=== PATIENT | female | born 1950 | race Caucasian/White ===

== ENCOUNTER → 2020-09-09 01:48 | Outpatient (CLI) | payer MEDICARE, SELFPAY ==
[2020-09-09 19:23] LABS: SARS-CoV-2 RNA PCR Negative
== END ==
PROVIDERS: Visit Provider Internal Medicine Gastroenterology
DX: Z01.812 Encounter for preprocedural laboratory examination (principal); Z20.822 Contact with and (suspected) exposure to COVID-19
CPT/HCPCS: C9803; U0003; U0005

== ENCOUNTER 2020-09-12 01:59 | Day surgery (SDC) | payer MEDICARE, SELFPAY ==
[2020-09-01 15:38] VITALS: BMI 43.1
[2020-09-12 07:34] VITALS: RESP 20; TEMP 36.6; O2SAT 96; BMI 43.3
[2020-09-12] MEDS: LACTATED RINGERS 1,000 ML 150 ML IV CONT (07:39)
--- NOTE | 2020-09-12 07:45 | PM.HPGS ---
History of Present Illness History of Present Illness Consent: Risks, benefits, and alternatives have been discussed and questions answered. Patient agrees to proceed with procedure. Chief complaint: neoplasm screening Narrative: Poppy Kaminski is a 69 year old female referred for colon cancer screen Review of Systems Review of Systems: All systems reviewed & are unremarkable except as noted in HPI and below PMFSH Social History Social History Smoking packs per day: 0.75 Smoking cigarettes per day: 15.0 Years smoked: 35 Smoking pack-years: 26.25 Smoking status: Former smoker Tobacco type: cigarettes Alcohol intake: current Drinks per week: 10 Alcohol use details: 2 BOTTLES OF WINE A WEEK Substance use: never Substance use type: does not use Living arrangements: with family Spiritual care concerns: No Meds Home Medications and Allergies Home Medications Medication Instructions Recorded Confirmed Type bupropion HCl 150 mg PO DAILY 09/01/20 09/01/20 History losartan 50 mg PO DAILY 09/01/20 09/01/20 History montelukast 10 mg PO DAILY 09/01/20 09/01/20 History rosuvastatin 5 mg PO DAILY 09/01/20 09/01/20 History thyroid (pork) [[place] Thyroid] 30 mg PO DAILY 09/01/20 09/01/20 History Allergies Allergy/AdvReac Type Severity Reaction Status Date / Time No Known Allergies Allergy Verified 09/01/20 15:36 Vital Signs Vital Signs - 24 hr 09/12/20 07:34 Temperature 36.6 C Respiratory Rate 20 Pulse Oximetry 96 Exam Resp: Auscultation: clear to auscultation bilaterally Cardio: Rate: regular rate Rhythm: regular rhythm GI: GI Palp: Yes Soft to palpation and No Tenderness to palpation present (GI) Assessment and Plan Assessment and plan (1) Colon cancer screening: Code(s): Z12.11 - Encounter for screening for malignant neoplasm of colon Status: Acute Assessment and Plan: Colonoscopy with possible biopsy or polypectomy or cautery or injection of substances.
--- NOTE | 2020-09-12 08:06 | WPDANESEPPF ---
Anes - Initial Pre Proc Eval Procedure: Operation Date: 09/12/20 08:30 Proposed Procedures p Screening Colonoscopy - Francisco Javier Thompson MD Date/Time: 09/12/20 08:06 Surgeon: Francisco Javier Thompson MD Pre Op Diagnosis: neoplasm screening Patient Data Age: 69 Gender: F Height: 5 ft 4 in Weight: 114.5 kg Last Vital Signs Temp 36.6 C 09/12/20 07:34 Resp 20 09/12/20 07:34 Pulse Ox 96 09/12/20 07:34 Allergies Allergy/AdvReac Type Severity Reaction Status Date / Time No Known Allergies Allergy Verified 09/01/20 15:36 Home Medications Medication Instructions Recorded Confirmed Type bupropion HCl 150 mg PO DAILY 09/01/20 09/01/20 History losartan 50 mg PO DAILY 09/01/20 09/01/20 History montelukast 10 mg PO DAILY 09/01/20 09/01/20 History rosuvastatin 5 mg PO DAILY 09/01/20 09/01/20 History thyroid (pork) [[place] Thyroid] 30 mg PO DAILY 09/01/20 09/01/20 History Patient hx anesthesia problems: none Family hx anesthesia problems: none PMFSH Past Medical History Medical History Anxiety Arthritis Asthma Hyperlipidemia Hypertension Social History Social History Smoking packs per day: 0.75 Smoking cigarettes per day: 15.0 Years smoked: 35 Smoking pack-years: 26.25 Smoking status: Former smoker Tobacco type: cigarettes Alcohol intake: current Drinks per week: 10 Alcohol use details: 2 BOTTLES OF WINE A WEEK Substance use: never Substance use type: does not use Living arrangements: with family Spiritual care concerns: No Anes - Eval Final PreProcedure Day of Procedure 09/12/20 08:06 Patient weight: morbidly obese Heart: regular rate and rhythm Lungs: clear to auscultation Airway: Mallampati scale class II Neurological: alert and oriented Last oral intake: >/= 8 hours ASA classification: III Emergent: no Anesthetic plan: proceed Anesthesia type and monitoring: general GIVS and standard monitoring Informed Consent: The patient's anesthetic plan and its attendant risks and benefits were discussed with the patient/family/POA. Questions were solicited and answers provided to the satisfaction of the patient/family/POA.
[2020-09-12 08:42] VITALS: BP 149/65; PULSE 65; RESP 13; O2SAT 96
[2020-09-12 08:52] VITALS: BP 140/68; PULSE 68; RESP 20; O2SAT 96
[2020-09-12 09:02] VITALS: BP 149/93; PULSE 62; RESP 20; O2SAT 96
== END 2020-09-12 09:18 | disposition home or self-care (01) ==
PROVIDERS: Visit Provider Internal Medicine Gastroenterology
PROC: 0DJD8ZZ Inspection of Lower Intestinal Tract, Via Natural or Artificial Opening Endoscopic (ICD-10-PCS; CPT 45378; principal; 2020-09-12 08:30)
DX: Z12.11 Encounter for screening for malignant neoplasm of colon (principal); I10 Essential (primary) hypertension; E78.5 Hyperlipidemia, unspecified; F41.8 Other specified anxiety disorders; J45.909 Unspecified asthma, uncomplicated; Z87.891 Personal history of nicotine dependence; E66.01 Morbid (severe) obesity due to excess calories; Z68.41 Body mass index [BMI] 40.0-44.9, adult
CPT/HCPCS: G0121; C9803; J2704; J7120; U0003; U0005

== ENCOUNTER → 2021-01-01 15:32 | Outpatient (CLI) | payer MEDICARE, SELFPAY ==
--- NOTE | ~2021-01-01 | MM_ITS ---
EXAMINATION: MM screening rick BI w luz elena HISTORY: Screening mammogram TECHNIQUE: Craniocaudal and mediolateral oblique 3-D tomosynthesis images were obtained and synthetic 2-D images were generated. CAD analysis was submitted and interpreted. COMPARISON: No prior mammogram is available for comparison at this institution. BREAST PARENCHYMAL COMPOSITION: The breasts are heterogeneously dense, which may obscure small masses . FINDINGS: There is no evidence of suspicious mass, calcification, or architectural distortion to sugg est malignancy in either breast. IMPRESSION: 1. No mammographic evidence of malignancy. 2. Recommend routine screening mammography in one year. BI-RADS Category 1: Negative Reviewed, dictated and finalized at location A.
== END ==
DX: Z12.31 Encounter for screening mammogram for malignant neoplasm of breast (principal)
CPT/HCPCS: 77063; 77067

== ENCOUNTER 2022-03-01 08:13 | Emergency (ER) | payer MEDICARE, SELFPAY ==
--- NOTE | 2022-03-01 08:19 | ED.URI ---
HPI - URI/Sore Throat General Chief Complaint: Upper Respiratory Infection Stated Complaint: cough,fever, runny nose, watery eyes Time Seen by Provider: 03/01/22 08:25 Source: patient, RN notes reviewed and old records reviewed Mode of arrival: ambulatory Limitations: no limitations History of Present Illness HPI Narrative: 71 year old female who presents to [facility] care with 2 day history of cough, fevers up to 99.3F with headache.sore throat and body aches. She reports that she has had Covid immunizations and also had flu shot on February 07.Patient reports that she had had positive exposure to flu from grandsons recently. She has been taking Mucinex, Benadryl,nasal spray and cough syrup for her symptoms. MD elicited complaint: fever, cough, rhinorrhea, nasal congestion and other (watery eyes) Onset (ago): day(s) (2) Pain scale (0-10): 10 Treatments prior to arrival: acetaminophen, ibuprofen and other (Benadryl,Mucinex, and cough syrup, and nasal spray) Related Data Home Medications Medication Instructions Recorded Confirmed bupropion HCl 150 mg 24 hr tablet, 150 mg PO DAILY 09/01/20 09/01/20 extended release losartan 50 mg tablet 50 mg PO DAILY 09/01/20 09/01/20 montelukast 10 mg tablet 10 mg PO DAILY 09/01/20 09/01/20 rosuvastatin 5 mg tablet 5 mg PO DAILY 09/01/20 09/01/20 thyroid (pork) 30 mg tablet 30 mg PO DAILY 09/01/20 09/01/20 ([place] Thyroid) Allergies Allergy/AdvReac Type Severity Reaction Status Date / Time No Known Allergies Allergy Verified 09/01/20 15:36 Review of Systems Review of Systems: CONSTITUTIONAL: reports malaise, chills, sweats, or fever. EYES: Denies visual changes, redness, or discharge. ENT: Reports rhinorrhea, congestion, sinus pain, no otalgia positive for sore throat. CARDIOVASCULAR: Denies chest pain, palpitations, or edema. RESPIRATORY: Reports cough.? Denies dyspnea. GASTROINTESTINAL: Denies abdominal pain, nausea, vomiting, diarrhea SKIN: Denies rash or itching. MUSCULOSKELETAL: reports myalgia. NEUROLOGIC: reports headache. All systems reviewed & are unremarkable except as noted in HPI and below PMFSH Past Medical History Medical History (Updated 03/02/22 @ 06:57 by Socorro Valera NP) Anxiety Arthritis Asthma Hyperlipidemia Hypertension Hypothyroid Surgical History Surgical History (Updated 03/01/22 @ 11:19 by Socorro Valera NP) H/O: hysterectomy History of right knee joint replacement Hx of tonsillectomy Social History Social History (Updated 03/01/22 @ 08:23 by Socorro Valera NP) Smoking packs per day: 0.75 Smoking cigarettes per day: 15.0 Years smoked: 35 Smoking pack-years: 26.25 Smoking status: Former smoker Tobacco type: cigarettes Alcohol intake: current Drinks per week: 10 Alcohol use details: 2 BOTTLES OF WINE A WEEK Substance use: never Substance use type: does not use Gender identity (if verbalized by the patient): Female Spiritual care concerns: No Comments At time of signature, agree with nursing past medical, surgical, social and family history. There is no relevant family history pertinent to the presenting complaint Exam Narrative: GENERAL: Well-appearing, well-nourished, and in no acute distress. HEAD: Normocephalic EYES: PERRLA, conjunctivae clear, eyes watery ENT: Nares clear, turbinates edematous and erythematous, clear discharge. Mucous membranes moist. TM pearly carmen with dull light reflex bilaterally; no tragal tenderness. Oropharynx erythematous without lesions. Tonsils not present and without exudate, no drooling, no hoarseness, no trismus, uvula midline. NECK: Supple. No lymphadenopathy CHEST: Clear to auscultation, breath sounds equal. No wheezing, rhonchi, rales, or stridor. No respiratory distress, speaks in full sentences.cough noted with SAO2 96% on room air HEART: Regular rate and rhythm. No murmur heard. SKIN: Warm, dry, no rash. NEURO: Alert and orie
[2022-03-01 08:24] VITALS: BP 170/71; PULSE 93; RESP 16; TEMP 37.9; O2SAT 96
== END 2022-03-01 08:58 | disposition home or self-care (01) ==
PROVIDERS: Emergency Provider Registered Nurse
DX: R05.9 Cough, unspecified (principal); J10.1 Influenza due to other identified influenza virus with other respiratory manifestations; Z87.891 Personal history of nicotine dependence; M19.90 Unspecified osteoarthritis, unspecified site; I10 Essential (primary) hypertension; E03.9 Hypothyroidism, unspecified; J45.909 Unspecified asthma, uncomplicated; Z96.651 Presence of right artificial knee joint; F41.9 Anxiety disorder, unspecified
CPT/HCPCS: 87081; 87804; 87880; 99213; G0463

== ENCOUNTER 2022-03-06 08:35 | Emergency (ER) | payer MEDICARE, SELFPAY ==
[2022-03-06 08:45] VITALS: BP 135/61; PULSE 67; RESP 16; TEMP 36.3; O2SAT 98
--- NOTE | 2022-03-06 08:45 | ED.URI ---
HPI - URI/Sore Throat General Chief Complaint: Upper Respiratory Infection Stated Complaint: cough, sore throat Time Seen by Provider: 03/06/22 08:45 Source: patient and RN notes reviewed Mode of arrival: ambulatory Limitations: no limitations History of Present Illness HPI Narrative: 71 y/o female presented for c/o cough for one week. Pt was dx with influenza 03/01 (5 days ago) stating she still has a cough and noticed wheezing when laying on her side last night. Also reports right ear pressure and sinus pain. Taking mucinex, zyrtec, montelukast, and prescribed guaifenesin along with Tylenol and Aleve. Endorses feeling sob with exertion. Denies lethargy, cp, palpitations, n/v/d/f/c. MD elicited complaint: cough Related Data Home Medications Medication Instructions Recorded Confirmed bupropion HCl 150 mg 24 hr tablet, 150 mg PO DAILY 09/01/20 09/01/20 extended release losartan 50 mg tablet 50 mg PO DAILY 09/01/20 09/01/20 montelukast 10 mg tablet 10 mg PO DAILY 09/01/20 09/01/20 rosuvastatin 5 mg tablet 5 mg PO DAILY 09/01/20 09/01/20 thyroid (pork) 30 mg tablet 30 mg PO DAILY 09/01/20 09/01/20 ([place] Thyroid) Allergies Allergy/AdvReac Type Severity Reaction Status Date / Time No Known Allergies Allergy Verified 09/01/20 15:36 Review of Systems Review of Systems: CONSTITUTIONAL: denies malaise, chills, sweats, fever EYES: Denies visual changes, redness, or discharge ENT: Reports rhinorrhea, congestion, sinus pain, otalgia CARDIOVASCULAR: Denies chest pain, palpitations, edema RESPIRATORY: per HPI GASTROINTESTINAL: Denies abdominal pain, nausea, vomiting, diarrhea SKIN: Denies rash or itching PMFSH Past Medical History Medical History Anxiety Arthritis Asthma Hyperlipidemia Hypertension Hypothyroid Surgical History Surgical History H/O: hysterectomy History of right knee joint replacement Hx of tonsillectomy Social History Social History Smoking packs per day: 0.75 Smoking cigarettes per day: 15.0 Years smoked: 35 Smoking pack-years: 26.25 Smoking status: Former smoker Tobacco type: cigarettes Alcohol intake: current Drinks per week: 10 Alcohol use details: 2 BOTTLES OF WINE A WEEK Substance use: never Substance use type: does not use Gender identity (if verbalized by the patient): Female Spiritual care concerns: No Exam Narrative: GENERAL: Ill-appearing, nontoxic EYES: PERRLA, conjunctivae clear ENT: Mucous membranes moist. TMs pearly carmen with light reflex bilaterally; no tragal tenderness. Oropharynx erythematous without lesions or exudate, no drooling, no hoarseness, no trismus, uvula midline. CHEST: Clear to auscultation, breath sounds equal. No wheezing, rhonchi, rales, or stridor. No respiratory distress, speaks in full sentences. HEART: Regular rate and rhythm. No murmur heard. SKIN: Warm, dry, no rash. NEURO: Alert and oriented x3. PSYCH: Normal mood and affect Course Course Emergency Course: Patient is aware of diagnosis, understands and agrees to treatment plan. Anticipatory guidance given. Patient agrees to follow-up as directed and is aware of reasons to seek care at the emergency department. Portions of this record may have been created with voice recognition software Level of Care: Express Care Visit Vital Signs Vital signs: reviewed MDM - URI/Sore Throat MDM Narrative Medical decision making narrative: Discussed influenza symptoms at length, pt is aware it is a virus and symptoms can linger for several days. Her PCP is at [facility] and she states she does not feel comfortable driving out there while feeling ill. Patient requesting antibiotic. Patient again is advised to continue current efforts for symptom treatment and add flonase and saline spray, LCTAB. Advis
== END 2022-03-06 09:00 | disposition home or self-care (01) ==
PROVIDERS: Emergency Provider Nurse Practitioner Family
DX: B34.9 Viral infection, unspecified (principal); Z87.891 Personal history of nicotine dependence; M19.90 Unspecified osteoarthritis, unspecified site; E78.5 Hyperlipidemia, unspecified; I10 Essential (primary) hypertension; E03.9 Hypothyroidism, unspecified; Z96.651 Presence of right artificial knee joint; F41.9 Anxiety disorder, unspecified
CPT/HCPCS: 99213; G0463

== ENCOUNTER 2022-12-19 10:27 | Emergency (ER) | payer MEDICARE, SELFPAY ==
[2022-12-19 10:46] VITALS: BP 144/70; PULSE 70; RESP 16; TEMP 37.2; O2SAT 99
--- NOTE | 2022-12-19 10:49 | ED.EXTPRO ---
HPI - Extremity Problem General Chief complaint: Extremity Injury, Lower Stated complaint: swollen right leg Time Seen by Provider: 12/19/22 10:59 Source: patient and RN notes reviewed Mode of arrival: ambulatory Limitations: no limitations History of Present Illness HPI Narrative: 72-year-old female presents concern for redness, swelling, tenderness to the right lower extremity. She noticed the symptoms last night. She denies fever, aches, chills, sweats. Reports the leg feels tight when she walks. She denies shortness of breath, cough, headache MD Complaint: extremity swelling Related Data Home Medications Medication Instructions Recorded Confirmed bupropion HCl 150 mg 24 hr tablet, 150 mg PO DAILY 09/01/20 09/01/20 extended release losartan 50 mg tablet 50 mg PO DAILY 09/01/20 09/01/20 montelukast 10 mg tablet 10 mg PO DAILY 09/01/20 09/01/20 rosuvastatin 5 mg tablet 5 mg PO DAILY 09/01/20 09/01/20 thyroid (pork) 30 mg tablet 30 mg PO DAILY 09/01/20 09/01/20 ([place] Thyroid) Supplements 12/19/22 Allergies Allergy/AdvReac Type Severity Reaction Status Date / Time No Known Allergies Allergy Verified 12/19/22 10:42 Review of Systems Review of Systems: CONSTITUTIONAL: Denies malaise, chills, sweats, or fever. EYES: Denies redness, or discharge. ENT: Denies rhinorrhea, congestion, swollen lips, swollen tongue CARDIOVASCULAR: Denies chest pain, palpitations, or edema. RESPIRATORY: Denies cough or dyspnea. GASTROINTESTINAL: Denies abdominal pain, nausea, vomiting SKIN: Reports redness, swelling, tenderness to the right lower extremity MUSCULOSKELETAL: Denies joint pain or myalgia. NEUROLOGIC: Denies headache. All systems reviewed & are unremarkable except as noted in HPI and below PMFSH Past Medical History Medical History Anxiety Arthritis Asthma Hyperlipidemia Hypertension Hypothyroid Surgical History Surgical History H/O: hysterectomy History of right knee joint replacement Hx of tonsillectomy Social History Social History Smoking packs per day: 0.75 Smoking cigarettes per day: 15.0 Years smoked: 35 Smoking pack-years: 26.25 Smoking status: Former smoker Tobacco type: cigarettes Alcohol intake: current Drinks per week: 10 Alcohol use details: 2 BOTTLES OF WINE A WEEK Substance use: never Substance use type: does not use Living arrangements: with family Gender identity (if verbalized by the patient): Female Spiritual care concerns: No Comments At time of signature, agree with nursing past medical, surgical, social and family history. There is no relevant family history pertinent to the presenting complaint Exam Narrative: GENERAL: Well-appearing, well-nourished, and in no acute distress. HEAD: Normocephalic, atraumatic. EYES: PERRLA, conjunctivae clear, and EOMI. ENT: Mucous membranes moist. Oropharynx without edema, erythema or lesions. NECK: Supple. No lymphadenopathy CHEST: Clear to auscultation. No respiratory distress. HEART: Regular rate and rhythm. SKIN: Warm, dry. Bilateral lower extremity 1+ pitting edema. 15 x 9 cm area of erythema and warmth with proximal area of induration noted to the right lower extremity. The right calf is not significantly larger the left calf NEURO: Alert and oriented x3. PSYCH: Normal mood and affect Course Course Emergency Course: Patient is aware of, understands and agrees to be transferred to the emergency room. Patient agrees to proceed directly to the emergency department. Portions of this record may have been created with voice recognition software Level of Care: Express Care Visit Vital Signs Vital signs: Vital Signs Temperature 99.0 F 12/19/22 10:46 Pulse Rate 70 12/19/22 10:46 Respiratory Rate 16 12/19/22 10:46
--- NOTE | 2022-12-19 11:09 | PC.NURSE ---
provider to provider report in progress.
== END 2022-12-19 11:13 | disposition short-term general hospital (02) ==
PROVIDERS: Emergency Provider Nurse Practitioner
DX: R60.0 Localized edema (principal); Z87.891 Personal history of nicotine dependence; M19.90 Unspecified osteoarthritis, unspecified site; E78.5 Hyperlipidemia, unspecified; I10 Essential (primary) hypertension; E03.9 Hypothyroidism, unspecified; Z96.651 Presence of right artificial knee joint; F41.9 Anxiety disorder, unspecified
CPT/HCPCS: 99212; G0463